=== PATIENT | male | born 1965 | race Native Hawaiian/Other Pacific Islander ===

== ENCOUNTER 2017-10-18 10:05 | Observation (INO) | payer BC ==
[~2017-10-18] VITALS: Ht 177.8 cm; Wt 200.2 kg
[2017-10-18 11:19] VITALS: BP 137/79; TEMP 98; Ht 177.8 cm; Wt 200.2 kg
[2017-10-18 12:00] VITALS: BP 137/79; TEMP 98
[2017-10-18 12:12] LABS: PLATELET COUNT 248 K/uL (142-355)
[2017-10-18 12:15] LABS: PARTIAL THROMBOPLASTIN TIME 26.1 SECONDS (24.5-33.6)
[2017-10-18 12:26] LABS: POTASSIUM 3.9 mmol/L (3.6-5.2); SODIUM 139 mmol/L (136-145)
[2017-10-18 16:00] VITALS: BP 151/96; TEMP 97.8
[2017-10-18 20:00] VITALS: BP 139/84; TEMP 98.5
--- NOTE | 2017-10-18 23:42 | NUR ---
PLACED PATIENT ON HOME CPAP ON ROOM AIR. NOREEN MARK.
[2017-10-19] VITALS: BP 114/69; TEMP 98.2
--- NOTE | 2017-10-19 02:59 | NUR ---
10/18/17 2358: PT'S HEART RATE WENT UP TO 153. WHILE LISTENING TO HEART, RATE WENT BACK IN THE 80'S. DR MAGANA NOTIFIED AND ORDER WAS RECEIVED. 10/19/17 0020: PT'S HEART RATE UP AGAIN TO 140'S DR. MAGANA NOTIFIED AGAIN. WILL BE UP TO SEE PT. 10/19/17 0035: DR. MAGANA HERE TO SEE PT. ORDERS WRITTEN AND EXPLAINED TO PT AND SPOUSE. PT DENIES CHEST PAIN BUT CONTINUES TO FEEL PALPITATIONS.
[2017-10-19 03:07] LABS: PLATELET COUNT 246 K/uL (142-355)
[2017-10-19 03:09] LABS: POTASSIUM 3.6 mmol/L (3.6-5.2)
[2017-10-19 04:00] VITALS: BP 109/63; TEMP 97.8
[2017-10-19 08:00] VITALS: BP 152/80; TEMP 98.6
[2017-10-19] MEDS ORDERED: APIX1TAB PO ×2 (09:54→09:55)
[2017-10-19] MEDS ORDERED: DILT30TA24 PO (09:54)
[2017-10-19] MEDS ORDERED: TYLENOL325 MG PO (09:54)
[2017-10-19 12:00] VITALS: BP 124/84; TEMP 98
--- NOTE | 2017-10-19 14:28 | NUR ---
PTS IV D/C'D PER DOCTORS ORDERS. DISCHARGE INSTRUCTIONS AND FOLLOW UP APPOINTMENTS GIVEN. PT IS TO FOLLOW UP WITH DR. ROJAS ON 10/26/17 AT 11:15AM IN [facility]. MEDICATIONS WERE SENT OVER TO [facility]. PT AND PTS UNDERSTANDS ALL DISCHARGE INSTRUCTIONS. PT LEFT VIA WC. SPOUSE AT SIDE. NAD NOTED.
== END 2017-10-19 14:30 | disposition home or self-care (01) ==
LOC: MED/SURG 10:05
PROVIDERS: ADMIT Family Medicine
DX: I48.0 Paroxysmal atrial fibrillation (principal); E66.01 Morbid (severe) obesity due to excess calories
CPT/HCPCS: 36415; 80053; 82550; 83880; 84443; 84484; 85027; 85610; 85730; 93005; 96365; 96366; 96372; 99220; G0378; G0379; J1650; J3490

== ENCOUNTER 2021-12-14 06:54 | Outpatient (CLI) | payer BC ==
[~2021-12-14 06:54] MED LIST: APIX1TAB PO; DILT30TA24 PO; TYLENOL325 MG PO
== END 2021-12-14 19:07 | disposition home or self-care (01) ==
LOC: LABW 06:54
PROVIDERS: ATTEND Internal Medicine Interventional Cardiology
DX: E78.5 Hyperlipidemia, unspecified (principal); Z09 Encounter for follow-up examination after completed treatment for conditions other than malignant neoplasm
CPT/HCPCS: 36415; 80061; 80076